=== PATIENT | female | born 1975 | race American Indian/Alaskan Native ===

== ENCOUNTER 2018-08-19 00:47 | Emergency (ER) | payer MEDICAID ==
[2018-08-19 01:09] VITALS: BP 115/77
[2018-08-19] MEDS ORDERED: Sodium Chloride 0.9% 1,000 ML IV ONE (01:31)
--- NOTE | 2018-08-19 01:33 | EDM.PDOC ---
ED HPI GENERAL MEDICAL PROBLEM - General Chief Complaint: General Stated Complaint: NOT FEELING GOOD Time Seen by Provider: 08/19/18 01:28 Source of Information: Reports: Patient History Limitations: Reports: No Limitations - History of Present Illness INITIAL COMMENTS - FREE TEXT/NARRATIVE: This 43 yo female patient reports to the ED due to not feeling well. The patient reports she started to have cold symptoms on Monday08/13/18. On , the patient reports she started to have nausea and noticed that her blood sugar levels had been low. The patient reports she has been eating, but not as much as normally. The patient reports she has continued to take her medications as prescribed. The patient reports she started to notice some numbness in her left arm and left leg yesterday. The patient reports she has been sleeping for the past 24 hours. The patient has been taking cough medication, but nothing else for temporary symptom relief. Onset Date: 08/13/18 Duration: Constant, Getting Worse Location: Reports: Generalized Quality: Reports: Other Severity: Moderate Improves with: Reports: None Worsens with: Reports: None Associated Symptoms: Reports: No Other Symptoms Generalized Pain Score (Numeric/FACES): 4 - Related Data Allergies Allergy/AdvReac Type Severity Reaction Status Date / Time amoxicillin Allergy Hives Verified 08/19/18 01:10 hydrocodone Allergy Hives Verified 08/19/18 01:10 metformin Allergy Hives Verified 08/19/18 01:10 penicillin Allergy Hives Verified 08/19/18 01:10 Home Meds: Home Meds ALPRAZolam [Xanax] 1 mg PO TID PRN 02/10/15 [History] Asenapine Maleate [Saphris] 10 mg SL BEDTIME 02/10/15 [History] Doxycycline Monohydrate [Oracea] 40 mg PO BEDTIME 02/10/15 [History] Eletriptan [Relpax] 40 mg PO ASDIRECTED PRN 02/10/15 [History] Enalapril [Vasotec] 20 mg PO DAILY 02/10/15 [History] Fluticasone Propionate [Flonase] 2 spray NASBOTH DAILY 02/10/15 [History] Insulin Aspart [Novolog Flexpen] 34 units SQ TID 02/10/15 [History] Insulin Detemir [Levemir Flextouch] 80 units SQ DAILY 02/10/15 [History] Loratadine [Claritin] 10 mg PO ASDIRECTED PRN 02/10/15 [History] Pantoprazole [ProTONIX] 40 mg PO DAILY 02/10/15 [History] atorvaSTATin [Lipitor] 10 mg PO ONETIME 02/10/15 [History] Gabapentin [Neurontin] 300 mg PO TID 07/15/15 [History] Linaclotide [Linzess] 290 mcg PO DAILY 07/15/15 [History] Polyethylene Glycol 3350 [MiraLAX] 17 gm PO DAILY 07/15/15 [History] Zolpidem [Ambien] 5 mg PO BEDTIME 07/15/15 [History] buPROPion [Wellbutrin XL] 450 mg PO DAILY 07/15/15 [History] Past Medical History - Past Health History Medical/Surgical History: Denies Medical/Surgical History Cardiovascular History: Reports: High Cholesterol, Hypertension Other Respiratory History: Daughter Other Gastrointestinal History: Has Irritable Bowel Syndrome Neurological History: Reports: Headaches, Chronic, Migraines, Neuropathy, Diabetic Psychiatric History: Reports: Depression Other Psychiatric History: Father Endocrine/Metabolic History: Reports: Diabetes, Type II, IDDM, Obesity/BMI 30+ - Past Surgical History Musculoskeletal Surgical History: Reports: Other (See Below) Social & Family History - Family History Family Medical History: Noncontributory Cardiac: Reports: CAD, Heart Failure, High Cholesterol, Hypertension Respiratory: Reports: Asthma, COPD GI: Reports: Cholelithiasis Endocrine/Metabolic: Reports: Diabetes, type II, Obesity/MBI 30+ - Tobacco Use Smoking Status *Q: Never Smoker Second Hand Smoke Exposure: No - Caffeine Use Caffeine Use: Reports: Soda - Recreational Drug Use Recreational Drug Use: No - Living Situation & Occupation Living situation: Reports: with Family Occupation: Unemployed ED ROS GENERAL - Review of Systems Review Of Systems: ROS reveals no pertinent complaints other than HPI. ED EXAM, GENERAL - Physical Exam Exam: See Below Exam Limited By: No Limitations General Appearance: Alert, WD/WN, Moderate Distress, Obese Eye Exam: Bilateral Eye: EOMI, Normal Inspection, PERRL Ears: Normal External Exam, Normal Canal, Hearing Grossly Normal, Normal TMs Nose: Normal Inspection, Normal Mucosa, No Blood Throat/Mouth: Normal Inspection, Normal Lips, Normal Teeth, Normal Gums, Normal Oropharynx, Normal Voice, No Airway Compromise Head: Atraumatic, Normocephalic Neck: Normal Inspection, Supple, Non-Tender, Full Range of Motion Respiratory/Chest: No Respiratory Distress, Lungs Clear, Normal Breath Sounds, No Accessory Muscle Use, Chest Non-Tender Cardiovascular: Normal Peripheral Pulses, Regular Rate, Rhythm, No Edema, No Gallop, No JVD, No Murmur, No Rub GI/Abdominal: Normal Bowel Sounds, Soft, Non-Tender, No Organomegaly, No Distention, No Abnormal Bruit, No Mass (Female) Exam: Deferred Rectal (Female) Exam: Deferred Back Exam: Normal Inspection, Full Range of Motion, NT Extremities: Normal Inspection, Normal Range of Motion, Non-Tender, Normal Capillary Refill, No Pedal Edema Neurological: Alert, Oriented, CN II-XII Intact, Normal Cognition, Normal Gait, Normal Reflexes, No Motor/Sensory Deficits Psychiatric: Normal Affect, Normal Mood Skin Exam: Warm, Dry, Intact, Normal Color, No Rash Lymphatic: No Adenopathy Course - Vital Signs Last Recorded V/S: Last Vital Signs Temp 36.6 C 08/19/18 01:02 Pulse 99 08/19/18 01:02 Resp 17 08/19/18 01:02 BP 115/77 08/19/18 01:02 Pulse Ox 98 08/19/18 01:02 - Orders/Labs/Meds Orders: Active Orders 24 hr Category Date Time Status Glucose [Blood Glucose Check, Bedside] [RC] ONETIME Care 08/19/18 01:42 Active CULTURE URINE [RM] Stat Lab 08/19/18 03:28 Received UA W/MICROSCOPIC [URIN] Urgent Lab 08/19/18 03:28 Results Sodium Chloride 0.9% [Normal Saline] 1,000 ml Med 08/19/18 01:31 Active IV .BOLUS Medication Orders Sodium Chloride (Normal Saline) 1,000 mls @ 999 mls/hr IV .BOLUS ONE Stop: 08/19/18 03:31 Last Admin: 08/19/18 01:43 Dose: 999 mls/hr Labs: Laboratory Tests 08/19/18 08/19/18 08/19/18 Range/Units 01:35 01:35 01:46 WBC 7.4 (5.0-10.0) 10^3/uL RBC 4.49 (4.2-5.4) 10^6/uL Hgb 13.4 (12.0-16.0) g/dL Hct 40.7 (37.0-47.0) % MCV 90.6 D (80-100) fL MCH 29.8 (27.0-34.0) pg MCHC 32.9 L (33.0-35.0) g/dL Plt Count 200 (150-450) 10^3/uL Neut % (Auto) 66.9 (42.2-75.2) % Lymph % (Auto) 18.9 L (20.5-50.1) % Atlantic % (Auto) 11.2 H (2-8) % Eos % (Auto) 2.7 (1.0-3.0) % Baso % (Auto) 0.3 (0.0-1.0) % Sodium 136 (135-145) mmol/L Potassium 3.2 L (3.6-5.0) mmol/L Chloride 104 (101-111) mmol/L Carbon Dioxide 23.0 (21.0-31.0) mmol/L Anion Gap 12.2 BUN 10 (7-18) mg/dL Creatinine 1.1 (0.6-1.3) mg/dL Est Cr Clr Drug Dosing 70.58 mL/min Estimated GFR (MDRD) 54 BUN/Creatinine Ratio 9.09 Glucose 74 (74-105) mg/dL POC Glucose 81 (70-105) mg/dl Calcium 8.3 L (8.4-10.2) mg/dl Total Bilirubin 0.6 (0.2-1.0) mg/dL AST 28 (10-42) IU/L ALT 35 (10-60) IU/L Alkaline Phosphatase 118 (42-121) IU/L Total Protein 6.9 (6.7-8.2) g/dl Albumin 3.4 (3.2-5.5) g/dl Globulin 3.5 Albumin/Globulin Ratio 0.97 Urine Color (YELLOW) Urine Appearance (CLEAR) Urine pH (5.0-9.0) Ur Specific Exline (1.005-1.030) Urine Protein (NEGATIVE) Urine Glucose (UA) (NEGATIVE) Urine Ketones (NEGATIVE) Urine Occult Blood (NEGATIVE) Urine Nitrite (NEGATIVE) Urine Bilirubin (NEGATIVE) Urine Urobilinogen (0.2-1.0) mg/dL Ur Leukocyte Esterase (NEGATIVE) Urine Opiates Screen (NEGATIVE) Ur Oxycodone Screen (NEGATIVE) Urine Methadone Screen (NEGATIVE) Ur Barbiturates Screen (NEGATIVE) U Tricyclic Antidepress (NEGATIVE) Ur Phencyclidine Scrn (NEGATIVE) Ur Amphetamine Screen (NEGATIVE) U Methamphetamines Scrn (NEGATIVE) Urine MDMA Screen (NEGATIVE) U Benzodiazepines Scrn (NEGATIVE) Urine Cocaine Screen (NEGATIVE) U Marijuana (THC) Screen (NEGATIVE) 08/19/18 08/19/18 Range/Units 03:28 03:28 WBC (5.0-10.0) 10^3/uL RBC (4.2-5.4) 10^6/uL Hgb (12.0-16.0) g/dL Hct (37.0-47.0) % MCV (80-100) fL MCH (27.0-34.0) pg MCHC (33.0-35.0) g/dL Plt Count (150-450) 10^3/uL Neut % (Auto) (42.2-75.2) % Lymph % (Auto) (20.5-50.1) % Atlantic % (Auto) (2-8) % Eos % (Auto) (1.0-3.0) % Baso % (Auto) (0.0-1.0) % Sodium (135-145) mmol/L Potassium (3.6-5.0) mmol/L Chloride (101-111) mmol/L Carbon Dioxide (21.0-31.0) mmol/L Anion Gap BUN (7-18) mg/dL Creatinine (0.6-1.3) mg/dL Est Cr Clr Drug Dosing mL/min Estimated GFR (MDRD) BUN/Creatinine Ratio Glucose (74-105) mg/dL POC Glucose (70-105) mg/dl Calcium (8.4-10.2) mg/dl Total Bilirubin (0.2-1.0) mg/dL AST (10-42) IU/L ALT (10-60) IU/L Alkaline Phosphatase (42-121) IU/L Total Protein (6.7-8.2) g/dl Albumin (3.2-5.5) g/dl Globulin Albumin/Globulin Ratio Urine Color Yellow (YELLOW) Urine Appearance Slightly cloudy (CLEAR) Urine pH 6.0 (5.0-9.0) Ur Specific Exline <= 1.005 (1.005-1.030) Urine Protein Negative (NEGATIVE) Urine Glucose (UA) 500 H (NEGATIVE) Urine Ketones Negative (NEGATIVE) Urine Occult Blood Trace-lysed H (NEGATIVE) Urine Nitrite Negative (NEGATIVE) Urine Bilirubin Negative (NEGATIVE) Urine Urobilinogen 1.0 (0.2-1.0) mg/dL Ur Leukocyte Esterase Trace H (NEGATIVE) Urine Opiates Screen Negative (NEGATIVE) Ur Oxycodone Screen Negative (NEGATIVE) Urine Methadone Screen Negative (NEGATIVE) Ur Barbiturates Screen Negative (NEGATIVE) U Tricyclic Antidepress Negative (NEGATIVE) Ur Phencyclidine Scrn Negative (NEGATIVE) Ur Amphetamine Screen Negative (NEGATIVE) U Methamphetamines Scrn Negative (NEGATIVE) Urine MDMA Screen Negative (NEGATIVE) U Benzodiazepines Scrn Positive H (NEGATIVE) Urine Cocaine Screen Negative (NEGATIVE) U Marijuana (THC) Screen Negative (NEGATIVE) Meds: Medications Generic Name Dose Route Start Last Admin Trade Name Freq PRN Reason Stop Dose Admin Sodium Chloride 1,000 mls @ 999 mls/hr 08/19/18 01:31 08/19/18 01:43 Normal Saline IV 08/19/18 03:31 999 mls/hr .BOLUS ONE Administration Departure - Departure Time of Disposition: 03:38 Disposition: Home, Self-Care 01 Condition: Fair Clinical Impression: Gastroenteritis - Discharge Information *PRESCRIPTION DRUG MONITORING PROGRAM REVIEWED*: Not Applicable *COPY OF PRESCRIPTION DRUG MONITORING REPORT IN PATIENT ALEKSEY: Not Applicable Instructions: Viral Gastroenteritis, Adult Forms: ED Department Discharge Care Plan Goals: The patient was advised of the examination and lab results during the visit. The patient was given a liter of IV fluid while in the ED. The patient was encouraged to stick to a BRAT diet (bananas, rice, applesauce and toast) with small frequent sips of fluid over the next 48 hours. If the patient has any additional symptoms or concerns, the patient should either return to the emergency department or visit her primary care facility. - My Orders Last 24 Hours: My Active Orders 08/19/18 01:31 Sodium Chloride 0.9% [Normal Saline] 1,000 ml IV .BOLUS 08/19/18 01:42 Glucose [Blood Glucose Check, Bedside] [RC] ONETIME 08/19/18 03:28 CULTURE URINE [RM] Stat UA W/MICROSCOPIC [URIN] Urgent - Assessment/Plan Last 24 Hours: My Active Orders 08/19/18 01:31 Sodium Chloride 0.9% [Normal Saline] 1,000 ml IV .BOLUS 08/19/18 01:42 Glucose [Blood Glucose Check, Bedside] [] ONETIME 08/19/18 03:28 CULTURE URINE [RM] Stat UA W/MICROSCOPIC [URIN] Urgent
[2018-08-19 01:59] LABS: ANION GAP 12.2
== END 2018-08-19 03:48 | disposition home or self-care (01) ==
LOC: DL.ED 00:47
DX: K52.9 Noninfective gastroenteritis and colitis, unspecified (principal); E78.00 Pure hypercholesterolemia, unspecified; I10 Essential (primary) hypertension; F32.9 Major depressive disorder, single episode, unspecified; E11.9 Type 2 diabetes mellitus without complications; Z88.0 Allergy status to penicillin; Z88.5 Allergy status to narcotic agent; Z79.899 Other long term (current) drug therapy; Z79.4 Long term (current) use of insulin
CPT/HCPCS: 36415; 80053; 80305; 81001; 82962; 85025; 87086; 87804; 96365; 96366; 99284; J7030; 87088; 87186

== ENCOUNTER 2019-04-03 15:33 | Emergency (ER) | payer MEDICAID ==
[2019-04-03] MEDS ORDERED: Sodium Chloride 0.9% 10 ML Syringe FLUSH PRN (15:58)
[2019-04-03] MEDS ORDERED: Sodium Chloride 0.9% 1,000 ML IV ONE ×2 (15:59→16:16)
[2019-04-03] MEDS ORDERED: DOPamine/Dextrose 5%-Water 400 MG/250 ML BAG IV SCH ×3 (16:15→16:20)
[2019-04-03 16:20] LABS: ANION GAP 14.5; CHLORIDE,CL 100 mmol/L (101-111); SODIUM,NA 132 mmol/L (135-145)
--- NOTE | 2019-04-03 16:20 | CR ---
EXAMINATION: Chest 1V upright AP portable (mild rotation) SEX: Female AGE: 43 years CLINICAL HISTORY: 43-year-old female emergency department complaining of chest pain. INTERPRETATION: 1. Chronic shaggy accentuation central lung markings unchanged except for technique since 15 July 2015 comparison film. 2. Normal cardiac silhouette without cephalization of vascular flow, alveolar edema or dependent pleural effusion. 3. No new lung mass, hilar lymphadenopathy or focal lobar pneumonia. 4. No atelectasis/collapse. 5. No pneumothorax. CONCLUSION: No acute new cardiopulmonary abnormality since 15 July 2015.
--- NOTE | 2019-04-03 16:31 | EDM.PDOC ---
ED HPI GENERAL MEDICAL PROBLEM - General Chief Complaint: Chest Pain Stated Complaint: DIZZINESS Time Seen by Provider: 04/03/19 15:40 Source of Information: Reports: Patient, RN, RN Notes Reviewed History Limitations: Reports: No Limitations, Other - History of Present Illness INITIAL COMMENTS - FREE TEXT/NARRATIVE: Pt to ER with c/o dizziness and chest pain. Patient states she began having chest pains this morning. States the pain feels like someone sitting on her chest. Patient states she has been very lethargic, sleepy, nodding off while talking to people. Patient states she was hospitalized last week with low heartrate and low blood pressure. Patient states she was to get a pacemaker, but providers determined the reason for the bradycardia and hypotension was from Clonidine. She states she has not used Clonidine since then, but continues to feel this way. Pt reports hx of diabetes, arthritis, fibromyalgia, HTN, hyperlipidemia. Patient admits to recent fever and chills. Denies cough, urinary sx, N/V/D. States she had a UTI about 1 month ago. Denies any other cardiac problems. Onset: Today, Sudden - Related Data Allergies Allergy/AdvReac Type Severity Reaction Status Date / Time amoxicillin Allergy Hives Verified 04/03/19 15:41 hydrocodone Allergy Hives Verified 04/03/19 15:41 lactose Allergy Nausea and Verified 04/03/19 15:41 Vomiting metformin Allergy Hives Verified 04/03/19 15:41 penicillin Allergy Hives Verified 04/03/19 15:41 Home Meds: Home Meds Eletriptan [Relpax] 40 mg PO ASDIRECTED PRN 02/10/15 [History] Pantoprazole [ProTONIX] 40 mg PO DAILY 02/10/15 [History] atorvaSTATin [Lipitor] 10 mg PO ONETIME 02/10/15 [History] Gabapentin [Neurontin] 300 mg PO TID 07/15/15 [History] Linaclotide [Linzess] 290 mcg PO DAILY 07/15/15 [History] Cholecalciferol (Vitamin D3) [Vitamin D3] 1,000 units PO DAILY 12/24/18 [History ] Clobetasol [Clobetasol Propionate 0.05%] 30 gm TOP BID 12/24/18 [History] Enalapril [Vasotec] 5 mg PO DAILY 12/24/18 [History] LORazepam [Ativan] 2 mg PO BID 12/24/18 [History] Levothyroxine Sodium [Synthroid] 25 mcg PO DAILY 12/24/18 [History] QUEtiapine Fumarate [Seroquel] 800 mg PO DAILY 12/24/18 [History] cloNIDine [Catapres] 0.1 mg PO TID 12/24/18 [History] lamoTRIgine [Lamictal] 100 mg PO BID 12/24/18 [History] Benztropine Mesylate 1 mg PO TID PRN 02/15/19 [History] Diclofenac Sodium [Voltaren] 50 mg PO TID PRN 02/15/19 [History] Fluticasone Propionate [Flonase Allergy Relief] 1 spray NASBOTH ASDIRECTED 02/15 [History] Insulin Regular, Human [HumuLIN R] 120 units SQ BID 02/15/19 [History] Montelukast Sodium [Singulair] 10 mg PO DAILY 02/15/19 [History] Nabumetone 500 mg PO TID PRN 02/15/19 [History] Nitrofurantoin [place]/Macrocryst [Nitrofurantoin [place]-MCR] 100 mg PO BID 02/15/19 [History] tiZANidine [Zanaflex] 8 mg PO BEDTIME PRN 02/15/19 [History] Past Medical History - Past Health History Medical/Surgical History: Denies Medical/Surgical History HEENT History: Reports: Impaired Vision, Other (See Below) Other HEENT History: WEARS CORRECTIVE LENS Cardiovascular History: Reports: High Cholesterol, Hypertension Respiratory History: Reports: None, Other (See Below) Other Respiratory History: Daughter Gastrointestinal History: Reports: Diverticulosis, GERD, Helicobacter Pylori, Other (See Below) Other Gastrointestinal History: Has Irritable Bowel Syndrome. gastroparesis. DENIES HPYLORI 02/2019 Genitourinary History: Reports: None [employer] History: Reports: Musculoskeletal History: Reports: Fracture, Fibromyalgia, Other (See Below) Other Musculoskeletal History: HX OF FRACTURE RIGHT LEG Neurological History: Reports: Headaches, Chronic, Migraines, Neuropathy, Diabetic Psychiatric History: Reports: Anxiety, Depression Other Psychiatric History: Father Endocrine/Metabolic History: Reports: Diabetes, Type II, Hypothyroidism, IDDM, Obesity/BMI 30+, Vitamin D Deficiency Hematologic History: Reports: Iron Deficiency, Other (See Below) Other Hematologic History: Vitamin D deficiency Immunologic History: Reports: None Oncologic (Cancer) History: Reports: None Dermatologic History: Reports: Eczema, Other (See Below) Other Dermatologic History: rosacea - Infectious Disease History Infectious Disease History: Reports: Chicken Pox, Helicobacter Pylori, Other ( See Below) Other Infectious Disease History: rosacea - Past Surgical History Head Surgeries/Procedures: Reports: None Cardiovascular Surgical History: Reports: None Respiratory Surgical History: Reports: None GI Surgical History: Reports: Cholecystectomy, Colonoscopy, EGD, Other (See Below) Other GI Surgeries/Procedures: Operated Cholestectomy last 2007. capsule endoscopy Female Surgical History: Reports: Breast Biopsy, Section, D&C, Hysterectomy, Other (See Below) Other Female Surgeries/Procedures: cervical polyp Endocrine Surgical History: Reports: None Neurological Surgical History: Reports: None Musculoskeletal Surgical History: Reports: Carpal Tunnel, ORIF, Other (See Below ) Other Musculoskeletal Surgeries/Procedures:: ORIF right tib/fib Oncologic Surgical History: Reports: Biopsy of Breast Dermatological Surgical History: Reports: None Social & Family History - Family History Family Medical History: Noncontributory Cardiac: Reports: CAD, Heart Failure, High Cholesterol, Hypertension Respiratory: Reports: Asthma, COPD GI: Reports: Cholelithiasis Endocrine/Metabolic: Reports: Diabetes, type II, Obesity/MBI 30+ - Tobacco Use Smoking Status *Q: Former Smoker Used Tobacco, but Quit: Yes Month/Year Tobacco Last Used: June 1999 - Caffeine Use Caffeine Use: Reports: Soda Other Caffeine Use: AVERAGE OF 2 SODA POP BEVERAGES DAILY - Recreational Drug Use Recreational Drug Use: No - Living Situation & Occupation Living situation: Reports: with Family Occupation: Unemployed ED ROS GENERAL - Review of Systems Review Of Systems: ROS reveals no pertinent complaints other than HPI. ED EXAM, GENERAL - Physical Exam Exam: See Below Exam Limited By: No Limitations General Appearance: Alert, WD/WN, Lethargic Eye Exam: Bilateral Eye: EOMI, Normal Inspection Ears: Normal External Exam, Hearing Grossly Normal Nose: Normal Inspection Throat/Mouth: Normal Inspection, Normal Voice, No Airway Compromise Head: Atraumatic, Normocephalic Neck: Normal Inspection, Supple, Non-Tender, Full Range of Motion Respiratory/Chest: No Respiratory Distress, Lungs Clear, Normal Breath Sounds, No Accessory Muscle Use, Chest Non-Tender Cardiovascular: Normal Peripheral Pulses, Regular Rate, Rhythm, No Edema, No Gallop, No JVD, No Murmur, No Rub, Bradycardia Peripheral Pulses: 2+: Radial (L), Radial (R) GI/Abdominal: Normal Bowel Sounds, Soft, Non-Tender, No Organomegaly, No Distention, No Abnormal Bruit, No Mass, Pelvis Stable (Female) Exam: Deferred Rectal (Female) Exam: Deferred Back Exam: Normal Inspection, Full Range of Motion, NT Extremities: Normal Inspection, Normal Range of Motion, Non-Tender, Normal Capillary Refill, No Pedal Edema Neurological: Alert, Oriented, CN II-XII Intact, Normal Cognition, Normal Gait, Normal Reflexes, No Motor/Sensory Deficits Psychiatric: Normal Affect, Normal Mood Skin Exam: Warm, Dry, Intact, Normal Color, No Rash Lymphatic: No Adenopathy Course - Vital Signs Last Recorded V/S: Last Vital Signs Temp 97.6 F 04/03/19 17:00 Pulse 60 04/03/19 17:00 Resp 12 04/03/19 17:00 BP 112/43 L 04/03/19 17:00 Pulse Ox 96 04/03/19 17:00 - Orders/Labs/Meds Orders: Active Orders 24 hr Category Date Time Status EKG Documentation Completion [RC] STAT Care 04/03/19 15:59 Active Peripheral IV Care [RC] . DIRECTED Care 04/03/19 15:59 Active CULTURE URINE [RM] Stat Lab 04/03/19 16:32 Received DOPamine/Dextrose 5%-Water [DOPamine in D5W 400 MG/250 Med 04/03/19 16:34 Active ML] 400 mg in 250 ml IV TITRATE Sodium Chloride 0.9% [Saline Flush] Med 04/03/19 15:58 Active 10 ml FLUSH ASDIRECTED PRN Peripheral IV Insertion Adult [OM.PC] Stat Oth 04/03/19 15:58 Ordered Medication Orders Dopamine HCl/Dextrose (Dopamine In D5w 400 Mg/250 Ml) 400 mg in 250 mls @ 6.368 mls/hr IV TITRATE STA; Protocol Stop: 04/05/19 07:49 Last Titration: 04/03/19 16:52 Dose: 7.5 mcg/kg/min, 23.882 mls/hr Titration: 04/03/19 16:25 Dose: 5 mcg/kg/min, 15.921 mls/hr Admin: 04/03/19 16:22 Dose: 2 mcg/kg/min, 6.368 mls/hr Sodium Chloride (Saline Flush) 10 ml FLUSH ASDIRECTED PRN PRN Reason: Keep Vein Open Labs: Laboratory Tests 04/03/19 04/03/19 04/03/19 Range/Units 15:46 15:46 15:46 WBC 8.0 (5.0-10.0) 10^3/uL RBC 4.32 (4.2-5.4) 10^6/uL Hgb 12.8 (12.0-16.0) g/dL Hct 38.1 (37.0-47.0) % MCV 88.2 (80-100) fL MCH 29.6 (27.0-34.0) pg MCHC 33.6 (33.0-35.0) g/dL Plt Count 214 (150-450) 10^3/uL Neut % (Auto) 67.3 (42.2-75.2) % Lymph % (Auto) 24.4 (20.5-50.1) % [place] % (Auto) 7.0 (2-8) % Eos % (Auto) 1.1 (1.0-3.0) % Baso % (Auto) 0.2 (0.0-1.0) % PT 9.9 (9.0-12.0) SEC INR 1.0 (0.9-1.2) Sodium 132 L (135-145) mmol/L Potassium 3.5 L (3.6-5.0) mmol/L Chloride 100 L (101-111) mmol/L Carbon Dioxide 21.0 (21.0-31.0) mmol/L Anion Gap 14.5 BUN 14 (7-18) mg/dL Creatinine 1.3 (0.6-1.3) mg/dL Est Cr Clr Drug Dosing 51.70 mL/min Estimated GFR (MDRD) 44 BUN/Creatinine Ratio 10.76 Glucose 292 H (74-105) mg/dL POC Glucose (70-105) mg/dl Calcium 8.7 (8.4-10.2) mg/dl Total Bilirubin 1.3 H (0.2-1.0) mg/dL AST 21 (10-42) IU/L ALT 17 (10-60) IU/L Alkaline Phosphatase 66 (42-121) IU/L Troponin I < 0.02 (0.00-0.02) ng/ml B-Natriuretic Peptide 8 (0-100) pg/ml Total Protein 6.9 (6.7-8.2) g/dl Albumin 3.7 (3.2-5.5) g/dl Globulin 3.2 Albumin/Globulin Ratio 1.16 Urine Color (YELLOW) Urine Appearance (CLEAR) Urine pH (5.0-9.0) Ur Specific Sanders (1.005-1.030) Urine Protein (NEGATIVE) Urine Glucose (UA) (NEGATIVE) Urine Ketones (NEGATIVE) Urine Occult Blood (NEGATIVE) Urine Nitrite (NEGATIVE) Urine Bilirubin (NEGATIVE) Urine Urobilinogen (0.2-1.0) mg/dL Ur Leukocyte Esterase (NEGATIVE) Urine RBC /HPF Urine WBC (0-5/HPF) /HPF Ur Epithelial Cells (NOT SEEN) /HPF Amorphous Sediment (NOT SEEN) /HPF Urine Bacteria (0-FEW/HPF) /HPF Urine Mucus (NOT SEEN) /LPF Urine HCG, Qual Urine Opiates Screen (NEGATIVE) Ur Oxycodone Screen (NEGATIVE) Urine Methadone Screen (NEGATIVE) Ur Barbiturates Screen (NEGATIVE) U Tricyclic Antidepress (NEGATIVE) Ur Phencyclidine Scrn (NEGATIVE) Ur Amphetamine Screen (NEGATIVE) U Methamphetamines Scrn (NEGATIVE) Urine MDMA Screen (NEGATIVE) U Benzodiazepines Scrn (NEGATIVE) Urine Cocaine Screen (NEGATIVE) U Marijuana (THC) Screen (NEGATIVE) Ethyl Alcohol mg/dL 04/03/19 04/03/19 04/03/19 Range/Units 15:46 15:47 16:32 WBC (5.0-10.0) 10^3/uL RBC (4.2-5.4) 10^6/uL Hgb (12.0-16.0) g/dL Hct (37.0-47.0) % MCV (80-100) fL MCH (27.0-34.0) pg MCHC (33.0-35.0) g/dL Plt Count (150-450) 10^3/uL Neut % (Auto) (42.2-75.2) % Lymph % (Auto) (20.5-50.1) % [place] % (Auto) (2-8) % Eos % (Auto) (1.0-3.0) % Baso % (Auto) (0.0-1.0) % PT (9.0-12.0) SEC INR (0.9-1.2) Sodium (135-145) mmol/L Potassium (3.6-5.0) mmol/L Chloride (101-111) mmol/L Carbon Dioxide (21.0-31.0) mmol/L Anion Gap BUN (7-18) mg/dL Creatinine (0.6-1.3) mg/dL Est Cr Clr Drug Dosing mL/min Estimated GFR (MDRD) BUN/Creatinine Ratio Glucose (74-105) mg/dL POC Glucose 268 H (70-105) mg/dl Calcium (8.4-10.2) mg/dl Total Bilirubin (0.2-1.0) mg/dL AST (10-42) IU/L ALT (10-60) IU/L Alkaline Phosphatase (42-121) IU/L Troponin I (0.00-0.02) ng/ml B-Natriuretic Peptide (0-100) pg/ml Total Protein (6.7-8.2) g/dl Albumin (3.2-5.5) g/dl Globulin Albumin/Globulin Ratio Urine Color Yellow (YELLOW) Urine Appearance Slightly cloudy (CLEAR) Urine pH 6.0 (5.0-9.0) Ur Specific Sanders <= 1.005 (1.005-1.030) Urine Protein Negative (NEGATIVE) Urine Glucose (UA) 500 H (NEGATIVE) Urine Ketones Negative (NEGATIVE) Urine Occult Blood Negative (NEGATIVE) Urine Nitrite Negative (NEGATIVE) Urine Bilirubin Negative (NEGATIVE) Urine Urobilinogen 0.2 (0.2-1.0) mg/dL Ur Leukocyte Esterase Small H (NEGATIVE) Urine RBC 0-5 /HPF Urine WBC >100 H (0-5/HPF) /HPF Ur Epithelial Cells Moderate H (NOT SEEN) /HPF Amorphous Sediment Rare (NOT SEEN) /HPF Urine Bacteria Many H (0-FEW/HPF) /HPF Urine Mucus Rare (NOT SEEN) /LPF Urine HCG, Qual Urine Opiates Screen (NEGATIVE) Ur Oxycodone Screen (NEGATIVE) Urine Methadone Screen (NEGATIVE) Ur Barbiturates Screen (NEGATIVE) U Tricyclic Antidepress (NEGATIVE) Ur Phencyclidine Scrn (NEGATIVE) Ur Amphetamine Screen (NEGATIVE) U Methamphetamines Scrn (NEGATIVE) Urine MDMA Screen (NEGATIVE) U Benzodiazepines Scrn (NEGATIVE) Urine Cocaine Screen (NEGATIVE) U Marijuana (THC) Screen (NEGATIVE) Ethyl Alcohol < 5 mg/dL 04/03/19 04/03/19 Range/Units 16:32 16:32 WBC (5.0-10.0) 10^3/uL RBC (4.2-5.4) 10^6/uL Hgb (12.0-16.0) g/dL Hct (37.0-47.0) % MCV (80-100) fL MCH (27.0-34.0) pg MCHC (33.0-35.0) g/dL Plt Count (150-450) 10^3/uL Neut % (Auto) (42.2-75.2) % Lymph % (Auto) (20.5-50.1) % [place] % (Auto) (2-8) % Eos % (Auto) (1.0-3.0) % Baso % (Auto) (0.0-1.0) % PT (9.0-12.0) SEC INR (0.9-1.2) Sodium (135-145) mmol/L Potassium (3.6-5.0) mmol/L Chloride (101-111) mmol/L Carbon Dioxide (21.0-31.0) mmol/L Anion Gap BUN (7-18) mg/dL Creatinine (0.6-1.3) mg/dL Est Cr Clr Drug Dosing mL/min Estimated GFR (MDRD) BUN/Creatinine Ratio Glucose (74-105) mg/dL POC Glucose (70-105) mg/dl Calcium (8.4-10.2) mg/dl Total Bilirubin (0.2-1.0) mg/dL AST (10-42) IU/L ALT (10-60) IU/L Alkaline Phosphatase (42-121) IU/L Troponin I (0.00-0.02) ng/ml B-Natriuretic Peptide (0-100) pg/ml Total Protein (6.7-8.2) g/dl Albumin (3.2-5.5) g/dl Globulin Albumin/Globulin Ratio Urine Color (YELLOW) Urine Appearance (CLEAR) Urine pH (5.0-9.0) Ur Specific Sanders (1.005-1.030) Urine Protein (NEGATIVE) Urine Glucose (UA) (NEGATIVE) Urine Ketones (NEGATIVE) Urine Occult Blood (NEGATIVE) Urine Nitrite (NEGATIVE) Urine Bilirubin (NEGATIVE) Urine Urobilinogen (0.2-1.0) mg/dL Ur Leukocyte Esterase (NEGATIVE) Urine RBC /HPF Urine WBC (0-5/HPF) /HPF Ur Epithelial Cells (NOT SEEN) /HPF Amorphous Sediment (NOT SEEN) /HPF Urine Bacteria (0-FEW/HPF) /HPF Urine Mucus (NOT SEEN) /LPF Urine HCG, Qual Negative Urine Opiates Screen Negative (NEGATIVE) Ur Oxycodone Screen Negative (NEGATIVE) Urine Methadone Screen Negative (NEGATIVE) Ur Barbiturates Screen Negative (NEGATIVE) U Tricyclic Antidepress Negative (NEGATIVE) Ur Phencyclidine Scrn Negative (NEGATIVE) Ur Amphetamine Screen Negative (NEGATIVE) U Methamphetamines Scrn Negative (NEGATIVE) Urine MDMA Screen Negative (NEGATIVE) U Benzodiazepines Scrn Negative (NEGATIVE) Urine Cocaine Screen Negative (NEGATIVE) U Marijuana (THC) Screen Negative (NEGATIVE) Ethyl Alcohol mg/dL Meds: Medications Generic Name Dose Route Start Last Admin Trade Name Freq PRN Reason Stop Dose Admin Dopamine HCl/Dextrose 400 mg in 250 mls @ 6.368 mls/hr 04/03/19 16:34 16:52 Dopamine In D5w 400 Mg/250 Ml IV 04/05/19 07:49 7.5 mcg/kg/min TITRATE STA 23.882 mls/hr Titration Protocol 2 MCG/KG/MIN Sodium Chloride 10 ml 04/03/19 15:58 Saline Flush FLUSH ASDIRECTED PRN Keep Vein Open Discontinued Medications Generic Name Dose Route Start Last Admin Trade Name Freq PRN Reason Stop Dose Admin Sodium Chloride 1,000 mls @ 999 mls/hr 04/03/19 15:59 04/03/19 16:00 Normal Saline IV 04/03/19 16:59 999 mls/hr .BOLUS ONE Administration Dopamine HCl/Dextrose 400 mg in 250 mls @ 6.368 mls/hr 04/03/19 16:15 Dopamine In D5w 400 Mg/250 Ml IV TITRATE LAINE Protocol 2 MCG/KG/MIN Sodium Chloride 1,000 mls @ 4,000 mls/hr 04/03/19 16:16 04/03/19 16:53 Normal Saline IV 04/03/19 16:30 Infused .BOLUS ONE Infusion Dopamine HCl/Dextrose 400 mg in 250 mls @ 6.368 mls/hr 04/03/19 16:20 Dopamine In D5w 400 Mg/250 Ml IV TITRATE LAINE Protocol 2 MCG/KG/MIN - Radiology Interpretation Free Text/Narrative:: Chest xray: No acute new cardiopulmonary abnormality since 15 Jul 2015 Chronic shaggy accentuation central lung markings unchanged except for technique since 15 Jul 2015 comparison film See rad report - Re-Assessments/Exams Free Text/Narrative Re-Assessment/Exam: 04/03/19 16:56 Patient case discussed with patient case with Dr. Short who agreed to accept the patient for transfer to [facility]. Departure - Departure Time of Disposition: 16:57 Disposition: DC/Tfer to [facility] 02 Reason for Transfer *Q: Other Condition: Fair Clinical Impression: Bradycardia Hypotension Qualifiers: Hypotension type: unspecified hypotension type Qualified Code(s): I95.9 - Hypotension, unspecified Referrals: PCP,Unobtain [Primary Care Provider] - Forms: ED Department Discharge, Interfacility Transfer EMTALA - My Orders Last 24 Hours: My Active Orders 04/03/19 15:58 Sodium Chloride 0.9% [Saline Flush] 10 ml FLUSH ASDIRECTED PRN Peripheral IV Insertion Adult [OM.PC] Stat 04/03/19 15:59 EKG Documentation Completion [RC] STAT Peripheral IV Care [RC] . DIRECTED 04/03/19 16:32 CULTURE URINE [RM] Stat 04/03/19 16:34 DOPamine/Dextrose 5%-Water [DOPamine in D5W 400 MG/250 ML] 400 mg in 250 ml IV TITRATE - Assessment/Plan Last 24 Hours: My Active Orders 04/03/19 15:58 Sodium Chloride 0.9% [Saline Flush] 10 ml FLUSH ASDIRECTED PRN Peripheral IV Insertion Adult [OM.PC] Stat 04/03/19 15:59 EKG Documentation Completion [RC] STAT Peripheral IV Care [RC] . DIRECTED 04/03/19 16:32 CULTURE URINE [RM] Stat 04/03/19 16:34 DOPamine/Dextrose 5%-Water [DOPamine in D5W 400 MG/250 ML] 400 mg in 250 ml IV TITRATE
[2019-04-03] MEDS ORDERED: DOPamine/Dextrose 5%-Water 400 MG/250 ML BAG IV STA (16:34)
[2019-04-03 17:36] VITALS: BP 126/43; PULSE 66
[2019-04-03] MEDS ORDERED: DOPamine/Dextrose 5%-Water 400 MG/250 ML BAG ONE (17:51)
== END 2019-04-03 17:25 ==
LOC: DL.ED 15:33
DX: I95.9 Hypotension, unspecified (principal); R00.1 Bradycardia, unspecified; K21.9 Gastro-esophageal reflux disease without esophagitis; E11.40 Type 2 diabetes mellitus with diabetic neuropathy, unspecified; I10 Essential (primary) hypertension; E78.00 Pure hypercholesterolemia, unspecified; F41.9 Anxiety disorder, unspecified; E66.9 Obesity, unspecified; F32.9 Major depressive disorder, single episode, unspecified; Z88.0 Allergy status to penicillin; Z87.891 Personal history of nicotine dependence; Z88.1 Allergy status to other antibiotic agents; Z68.30 Body mass index [BMI] 30.0-30.9, adult; Z79.899 Other long term (current) drug therapy; Z91.011 Allergy to milk products; Z88.8 Allergy status to other drugs, medicaments and biological substances
CPT/HCPCS: 36415; 71045; 80053; 80305; 80320; 81001; 81025; 82962; 83880; 84484; 85025; 85610; 87086; 93005; 96365; 99285; J1265; J7030; 87088; 87186; G0480

== ENCOUNTER 2019-06-04 05:44 | Day surgery (SDC) | payer MEDICAID ==
[2019-06-04] MEDS ORDERED: Midazolam 1 MG/ML 2 ML SDV IV ONE (05:45)
[2019-06-04] MEDS ORDERED: fentaNYL 100 MCG/2 ML SDV IV ONE (05:45)
[2019-06-04] MEDS ORDERED: fentaNYL 100 MCG/2 ML SDV ONE (06:11)
[2019-06-04] MEDS ORDERED: Midazolam 1 MG/ML 2 ML SDV ONE (06:11)
[2019-06-04] MEDS: Dextrose 5%-0.45% NaCl 1,000 ML IV SCH (06:15)
[2019-06-04] MEDS: fentaNYL 100 MCG/2 ML SDV IV ONE ×2 (06:28→06:29)
[2019-06-04] MEDS: Midazolam 1 MG/ML 2 ML SDV IV ONE ×6 (06:29→06:38)
--- NOTE | 2019-06-04 08:00 | OR ---
DATE: 06/04/2019 PROCEDURE: Total colonoscopy. INSTRUMENT USED: [id number]-H190DL Olympus video colonoscope. PREMEDICATIONS: Fentanyl 100 mcg intravenous, Versed 4 mg intravenous, nasal O2 cannula. The procedure was done under pulse oximetry, BP recording, and small animal veterinarian. INDICATION: The patient with chronic progressive constipation and rectal bleeding. Colonoscopic examination is done for detection of any polypoid lesions and removal, endoscopic hemostasis therapy if needed. DESCRIPTION OF PROCEDURE: Initial rectal exam was unremarkable. Rigid anoscopy showed small internal hemorrhoids without bleeding from them. The colonoscope was passed up to the ileocecal area. Photographs were taken of the normal- appearing cecum identified by landmarks of appendiceal orifice and double-bulged ileocecal folds. Numerous scattered diverticula were noted in the colon, more so in the distal left colon along with deformity. There was large amount of fecal material that had to be aspirated and the bowel was found to be tortuous and redundant. The bowel preparation was of scale 2 by [place] criteria in all the regions. No stricture. No vascular ectasia. No large isolated ulcerations seen. No evidence of diffuse inflammatory bowel disease in the form of friability, contact bleeding, or ulcerations. No polyp or tumor mass identified. Probing the proximal sides of folds and flexures using adequate distention and clearing up the stool material, withdrawal of the scope was made, cecum to rectum time over 6 minutes. No bleeding was noted from any of the visualized areas at the completion of examination. IMPRESSION: 1. Internal hemorrhoids. 2. Diverticulosis. The patient tolerated the procedure well. [facility] /[id number]
[2019-06-04 09:02] VITALS: BP 137/75; PULSE 69
== END 2019-06-04 08:44 | disposition home or self-care (01) ==
LOC: DL.ENDO 05:44
PROVIDERS: ATTEND Internal Medicine Gastroenterology
DX: K59.09 Other constipation (principal); K62.5 Hemorrhage of anus and rectum; K64.8 Other hemorrhoids; K57.30 Diverticulosis of large intestine without perforation or abscess without bleeding; Q43.8 Other specified congenital malformations of intestine; I10 Essential (primary) hypertension; E11.9 Type 2 diabetes mellitus without complications; F41.1 Generalized anxiety disorder; F32.9 Major depressive disorder, single episode, unspecified; G89.4 Chronic pain syndrome; E66.09 Other obesity due to excess calories; Z68.29 Body mass index [BMI] 29.0-29.9, adult; Z79.4 Long term (current) use of insulin
CPT/HCPCS: 45378; J2250; J3010; J7042; G0121